=== PATIENT | female | born 1990 | race Caucasian/White ===

== ENCOUNTER 2017-05-06 15:54 | Emergency (ER) | payer SELFPAY ==
[~2017-05-06] VITALS: Ht 157.5 cm; Wt 95.0 kg
[2017-05-06] MEDS ORDERED: ONDANSETRON 4MG ODT PO STA (19:37)
[2017-05-06 20:35] LABS: CLARITY URINE CLOUDY (CLEAR); COLOR URINE YELLOW (YELLOW); KETONES URINE NEGATIVE (NEGATIVE); LEUKOCYTE ESTERASE URINE 2+ (NEGATIVE); NITRITE URINE NEGATIVE (NEGATIVE); OCCULT BLOOD URINE NEGATIVE (NEGATIVE); PH URINE 6.5 (4.5-8.0); PROTEIN URINE NEGATIVE (NEGATIVE); SPECIFIC GRAVITY URINE 1.022 (1.005-1.030)
[2017-05-06 20:43] LABS: BASOPHILS % 0.5 % (0.0-2.0); HEMATOCRIT. 40.3 % (36.0-48.0); HEMOGLOBIN. 13.8 g/dL (12.0-16.0); LYMPHOCYTES % 19.8 % (20.0-50.0); MEAN CORPUSCULAR HEMOGLOBIN 29.6 pg (28.0-32.0); MEAN CORPUSCULAR VOLUME 86.6 fL (81.0-99.0); MEAN PLATELET VOLUME 8.3 fl (7.4-10.4); MONOCYTES % 8.4 % (2.0-8.0); NEUTROPHILS % 70.3 % (40.0-76.0); PLATELET 239 x1000/uL (130-400); RED BLOOD CELL COUNT 4.65 mill/uL (4.2-5.4); RED CELL DISTRIBUTION WIDTH 13.9 % (11.6-14.6)
[2017-05-06 20:47] LABS: CHLORIDE 104 mEq/L (98-107)
[2017-05-06 20:49] LABS: PROTHROMBIN TIME 10.4 sec
[2017-05-06 20:51] LABS: *AMPHETAMINES SCREEN URINE NEGATIVE (NEGATIVE); *BARBITURATES SCREEN URINE NEGATIVE (NEGATIVE); *BENZODIAZEPINES SCREEN URINE NEGATIVE (NEGATIVE); *COCAINE SCREEN URINE NEGATIVE (NEGATIVE); CANNABINOID URINE SCREEN NEGATIVE (NEGATIVE); METHADONE URINE SCREEN NEGATIVE (NEGATIVE); OPIATES URINE SCREEN NEGATIVE (NEGATIVE); PHENCYCLIDINE URINE SCREEN NEGATIVE (NEGATIVE)
[2017-05-06 20:55] LABS: CARBON DIOXIDE 27 mEq/L (21-32)
[2017-05-06] MEDS ORDERED: FAMOTIDINE 20MG TABLET PO ONE (21:45)
[2017-05-06] MEDS ORDERED: ACETAMINOPHEN 325MG TABLET PO ONE (21:45)
[2017-05-06 21:55] VITALS: BP 113/73
== END 2017-05-06 22:48 | disposition home or self-care (01) ==
LOC: ER 15:54
DX: K80.20 Calculus of gallbladder without cholecystitis without obstruction (principal); N39.0 Urinary tract infection, site not specified
CPT/HCPCS: 36415; 71010; 76705; 80053; 80305; 81001; 81025; 83690; 85025; 85610; 99285; Q0162; Z7610

== ENCOUNTER 2017-09-19 22:13 | Emergency (ER) | payer SELFPAY ==
[~2017-09-19] VITALS: Ht 157.5 cm; Wt 91.0 kg
[2017-09-19 22:20] VITALS: BP 113/68
== END 2017-09-19 22:39 | disposition left against medical advice (07) ==
LOC: ER 22:13
DX: R10.9 Unspecified abdominal pain (principal); Z53.21 Procedure and treatment not carried out due to patient leaving prior to being seen by health care provider